=== PATIENT | male | born 1965 | race Caucasian/White ===

== ENCOUNTER → 2018-08-17 16:20 | Outpatient (CLI) | payer OTHER, SELFPAY | PROVIDERS: Family Provider Family Medicine; PCP Family Medicine; Visit Provider Family Medicine | DX: I10 Essential (primary) hypertension (principal) | CPT/HCPCS: 36415 ==

== ENCOUNTER → 2025-02-03 | Outpatient (CLI) | payer MEDICAID, SELFPAY ==
--- NOTE | 2025-02-03 09:35 | US_ITS ---
PROCEDURE: ABDOMEN COMPLETE 02/03/2025 REASON FOR EXAM: POLYCYTHEMIA VERA-LIVER,KIDNEY,SPLEEN TECHNIQUE: ABDOMEN COMPLETE COMPARISON: None. FINDINGS: The liver measures 16.4 cm. Increased echogenicity. Hepatopetal flow. Gallbladder measures 10.9 cm in length. Negative sonographic Jc's sign. The pancreas is not well visualized of the bowel gas obscuring the region. Right kidney measures 13.4 cm in length. Left kidney measures 13.9 cm in length. The spleen measures 19.3 cm in length. US/Abdomen Complete IMPRESSION: Hepatomegaly and hepatic steatosis. Splenomegaly. Reading Location: [id number]
== END | disposition home or self-care (01) ==
LOC: US 09:35
PROVIDERS: PCP Family Medicine; Referring Provider Internal Medicine Medical Oncology; Visit Provider Internal Medicine Medical Oncology
DX: D45 Polycythemia vera (principal)
CPT/HCPCS: 76700

== ENCOUNTER 2025-05-31 13:00 | Outpatient (RCR) | payer MEDICAID, SELFPAY ==
--- NOTE | 2025-02-15 14:41 | HP.SP.EV_ITS ---
Visit History Visit Info Date of Eval: 02/15/25 Today is Visit #: 1 Patient's Approved Number of Visits: 20 Insurance Date Limit: 07/13/25 Plow Mechanic: TOBI Ward Attending Doctor: Referring Doctor: Reason for Referral: [facility] Medical Diagnosis: Acute left posterior cerebral artery stroke Other Relevant Medical History/Diagnoses/Surgery: Brenton is a 59-year-old man who was admitted to [facility] on 12/26/2024 with slurred speech and right-sided facial droop. He was diagnosed with acute left posterior cerebral artery stroke. Pt stated that he is still having trouble with vision, memory, and word finding. Medications related to this diagnosis: amlodipine, aspirin, atorvastatin, clopidogrel, lisinopril, mecobalamin, sertraline Smoking Status: Never smoker Diagnosis Diagnosis: Mild expressive aphasia Pain Is pain an issue with your current prescribed condition?: No Personal Preferred language: Portuguese Patient Allergies Allergies Allergies: Allergies No Known Allergies Allergy (Verified 02/10/25 14:38) CLQT CLQT CLQT Administered: Yes CLQT: Cognitive Linguistic Quick Test (CLQT) is a criterion - referenced assessment designed for adults between the ages of 18 and 89 with known or suspected neurological dysfuntions. The CLQT is to assess strength and weaknesses in five cognitive domains. Severity ratings are within normal limits, mild, moderate, severe deficits. The subtests are as follows: Date: 02/15/25 Attention Attention: Moderate Memory Memory: WNL Executive Functions Executive Functions: Mild Language Language: Mild Visuospatial Skills Visuospatial Skills: Mild Composite Severity Rating Composite Severity Rating: Mild Clock Drawing Severity Rating Clock Drawing Severity Rating: Mild CLQT Comments -: -: Attention: 89 (moderate) Memory: 162 (WNL) Executive Functions: 22 (mild) Language: 28 (mild) Visuospatial Skills: 57 (mild) Reference: Neuro-QoL instrument Radiation Oncology Patient Plan Plan Plan: At this time, it is recommended that Brenton participate in weekly skilled speech therapy to target mild to moderate deficits in the areas of attention, language, executive functions, and visuospatial skills. Interventions will aid in Brenton being able to communicate his daily needs and wants to others as well as assist in his return to work. Recommendations Treatment Warranted: Yes Treatment Warranted: Receptive/ Expressive Language and Cognition Progress Prognosis: Good Frequency Frequency: 1x/Week Patient/Family Goal Patient/Family Goal: Patient stated that he wants to improve his language skills with spelling and word retrieval as well as his attention. Goals that are Established Determination:: Goals will be added/modified as deemed necessary and appropriate. Therapy will be discontinued when results of re-evaluation i ndicate therapy is no longer needed or lack of progress has been documented. Goal #1-5 Goal #1: Brenton will independently complete moderately complex sustained, alternating, divided attention tasks with 90% accuracy as measured across 3 consecutive sessions. Goal #2: Brenton will independently complete complex problem solving, reasoning, and executive function tasks including but not limited to functional ADL (i.e. managing finances, safety awareness, paying bills, medication management, meal planning, using cellphone) with 90% accuracy as measured across 3 consecutive sessions. Goal #3: Brenton will independently complete moderately complex confrontation, convergent, and divergent naming tasks with 90% accuracy as measured across 3 consecutive sessions. Goal #4: Brenton will demonstrate self-awareness of visual neglect by verbally identifying and correcting errors related to visual neglect (e.g., missing items) with 90% accuracy as measured across 3 consecutive sessions. Education Patient has Indicated that the Following Identified Educational Needs: None The Patient has indicated that they have no educational or learning abilities that may effect their care.: Yes Patient Instruction Patient Education: Diagnosis, Treatment Plan and Goals Person Taught: Patient Teaching Method: Discussion Response to teaching: Verbalize Understanding
--- NOTE | 2025-07-12 18:53 | HP.SP.DC ---
ST Discharge Summary Discharged: Discharge: TODD DEE is a 59 year old male who initially presented to [facility] on 02/15/2025 following diagnoses of aphasia and memory deficits secondary to two left MCA ischemic CVAs in December 2024. Gary participated in 13 additional treatment sessions targeted use of aphasia word finding strategies, external memory strategies, executive functioning tasks including problem solving, and divided and alternating attention tasks. Pt made significant cognitive linguistic progress in the sessions he attended however was still presenting with mild deficits across all areas at the time of his last appointment. He was last seen on 05/31/2025 and has since canceled his last three appointments (two of which were after his neurology evaluation) with no more scheduled. At this time he will be discharged from speech therapy d/t lack of attendance to his appointments with no reason given. Per chart review, Pt did recently participate in an evaluation with neurology on 06/13/2025 where it was also noted: Memory testing was only 1/3. Language showed normal campus receptionist and expression. He was able to follow commands promptly. Speech output appeared to be relatively fluent. Comprehension may have been somewhat impaired as well as Patient was said to have an aphasia complicating his stroke. This appears to have improved greatly. He is understanding of words and his ability to express words appears to be preserved. His thought content and cognitive abilities may be somewhat limited at this point in time as a result of his stroke. He also has a memory defect. Neurologist also recommended Pt not to drive which was also advised by this speech therapist. Would consider re-evaluation in the future following script from physician d/t continued suspected deficits. Thank you for allowing me to participate in the care of your patient.
== END 2025-05-31 19:00 | disposition home or self-care (01) ==
LOC: SP 13:00
PROVIDERS: PCP Family Medicine; Referring Provider Internal Medicine Medical Oncology; Visit Provider Internal Medicine Medical Oncology
DX: I69.320 Aphasia following cerebral infarction (principal)
CPT/HCPCS: 92507; 92523; 97129; 97130